=== PATIENT | female | born 1980 ===

== ENCOUNTER 2024-08-03 04:06 | Day surgery (SDC) | payer OTHER ==
[2024-07-30 16:54] VITALS: BMI 36.8
[2024-08-03] MEDS: ceFAZolin SODIUM 1 GM VIAL IVPB ONE
[2024-08-03] MEDS ORDERED: PROPOFOL 20 ML ONE (07:23)
[2024-08-03] MEDS ORDERED: SUCCINYLCHOLINE CHLORIDE 200 MG/10 ML SYRINGE ONE ×2 (07:23→09:00)
[2024-08-03] MEDS ORDERED: MIDAZOLAM HCL 2 MG/2 ML SINGLE DOSE VIAL ONE ×2 (07:23→09:00)
[2024-08-03] MEDS ORDERED: ROCURONIUM BROMIDE 50 MG/5 ML SYRINGE ONE ×2 (07:23→09:02)
[2024-08-03] MEDS ORDERED: LIDOCAINE HCL/PF 2% SDV 5ML VIAL ONE ×2 (07:23→09:00)
[2024-08-03] MEDS ORDERED: BUPIVACAINE HCL/PF 0.25% (2.5MG/ML) 10 ML VIAL ONE (08:35)
[2024-08-03] MEDS ORDERED: cefOXitin SODIUM 2 GM VIAL (RESTRICTED TO ID) IVPB ONE (08:35)
[2024-08-03] MEDS ORDERED: HEPARIN NA (PORCINE) 5,000 UNITS/ML 1ML VIAL ONE (08:35)
[2024-08-03] MEDS ORDERED: PROPOFOL 40 ML ONE (09:00)
[2024-08-03] MEDS ORDERED: SUGAMMADEX SODIUM 200 MG/2 ML VIAL ONE (09:03)
[2024-08-03] MEDS: cefOXitin SODIUM 2 GM VIAL (RESTRICTED TO ID) IVPB ONE ×2 (09:43)
[2024-08-03] MEDS ORDERED: ONDANSETRON 4 MG/2 ML VIAL ONE (09:46)
[2024-08-03] MEDS ORDERED: DEXAMETHASONE SOD PHOSPHATE 4 MG/1 ML VIAL ONE (09:46)
[2024-08-03] MEDS: BUPIVACAINE HCL/PF 0.25% (2.5MG/ML) 10 ML VIAL IJ ONE ×3 (09:48)
[2024-08-03] MEDS ORDERED: ONDANSETRON 4 MG/2 ML VIAL IVPUSH PRN (10:43)
[2024-08-03] MEDS: ACETAMINOPHEN 1000 MG/100 ML BAG IVPB ONE (10:55)
[2024-08-03] MEDS: LACTATED RINGERS SOLUTION 1,000 ML IV SCH (10:56)
[2024-08-03 13:02] VITALS: PULSE 79; RESP 16
[2024-08-03 14:01] VITALS: BP 133/77; TEMP 97.1
[2024-08-03] MEDS ORDERED: oxyCODONE HCL 5 MG TABLET ONE (14:23)
[2024-08-03] MEDS: oxyCODONE HCL 5 MG TABLET PO PRN (14:26)
== END 2024-08-03 15:04 | disposition home or self-care (01) ==
LOC: JASU-SURG 04:06
PROVIDERS: ATTEND Surgery
PROC: 0FT44ZZ Resection of Gallbladder, Percutaneous Endoscopic Approach (ICD-10-PCS; principal; 2024-08-03 08:00)
DX: K81.1 Chronic cholecystitis (principal); G40.909 Epilepsy, unspecified, not intractable, without status epilepticus; I10 Essential (primary) hypertension; E66.9 Obesity, unspecified; I83.93 Asymptomatic varicose veins of bilateral lower extremities
CPT/HCPCS: 81025; 86850; 86900; 86901; 88304-TC; 94760; J0131; J1644